=== PATIENT | female | born 1965 | race Caucasian/White ===

== ENCOUNTER 2016-10-24 03:47 | Observation (INO) ==
[2016-10-24 04:05] LABS: Basophils # 0.1 K/mcL (0.0-0.2); Basophils % 0.7 %; Eosinophils # 0.8 K/mcL (0.0-0.6); Hematocrit 46.6 % (35.3-44.9); Hemoglobin 15.6 g/dL (11.5-15.4); Immature Granulocytes % 0.3 % (0-4); Immature Platelets 1.8 % (1.1-6.1); Lymphocytes % 31.4 %; Mean Corpuscular HGB Conc 33.5 g/dL (31.6-35.5); Mean Corpuscular Hemoglobin 29.7 pg (28.0-33.3); Mean Corpuscular Volume 88.6 fL (83.0-100.0); Mean Platelet Volume 9.1 fL (9.4-12.4); Monocytes # 1.1 K/mcL (0.0-1.3); Neutrophils # 6.6 K/mcL (1.6-8.9); Platelet Count 381 K/mcL (140-400); Red Blood Count 5.26 M/mcL (3.82-4.97); Red Cell Distribution Width 12.9 % (11.5-14.5); Segmented Neutrophils % 52.6 %
--- NOTE | 2016-10-24 04:05 | Emergency Department Note ---
Disposition Clinical Impression: Unstable angina pectoris Chest pain Qualifiers: Chest pain type: unspecified Qualified Code(s): R07.9 - Chest pain, unspecified Disposition: Admitted As Inpatient Condition: Good Time of Disposition: 05:17 Chest Pain HPI - General Chief Complaint: ED Chest Pain Stated Complaint: chest pain Time Seen by Provider: 10/24/16 03:51 Source: patient Limitations: no limitations Vital Signs Reviewed: Yes Nursing Notes Reviewed: Yes - History of Present Illness HPI Narrative: 51-year-old female history of hypertension, CAD s/p 2 stents (Sep 2010), and hyperlipidemia presents the ED for chest pain. Patient reports unstable angina the past 3 days. Most recent episode 230 this morning describing chest pressure with radiation to the back. Denies any tearing sensation or radiation up the neck or down the arms. Symptoms lasted roughly 15 minutes after she took 324 mg aspirin and Xanax Some associated shortness of breath and nausea denies any diaphoresis or vomiting. She reports history of daily angina typically with exertion recently has been with at rest. Last heart catheterization was [address] Last stress test was a few years ago. Her job development specialist is Dr. Kenney. Reports compliance with her medications. Denies any fever, cough, abdominal pain. Denies any recent illness. Denies history of cancer, blood clots, recent long-distance travel, hospitalization or surgeries. Does not take any anticoagulants. Chest pain workup initiated. She is currently chest pain free. Her initial BP 175/112. Severity scale (1-10): 1 - Related Data Home Medications Medication Instructions Recorded Confirmed Aspirin 81 mg PO DAILY 02/15/15 09/26/16 Lisinopril [Zestril] 20 mg PO DAILY 02/15/15 09/26/16 ALPRAZolam [Xanax 0.5 MG Tablet] 0.5 mg PO PRN PRN 05/24/16 09/26/16 Amlodipine Besylate 10 mg PO DAILY 05/24/16 09/26/16 Metoprolol Tartrate [Lopressor] 50 mg PO BID 05/24/16 09/26/16 Nitroglycerin 0.4 mg SL Q5M PRN 05/24/16 09/26/16 Gabapentin [Neurontin] 300 mg PO TID 09/26/16 09/26/16 Allergies Allergy/AdvReac Type Severity Reaction Status Date / Time No Known Allergies Allergy Verified 02/15/15 15:47 All systems ED: reviewed and negative except as stated. Review of Systems: As Per HPI Constitutional: Denies: fever, chills Cardiovascular: Reports: chest pain. Denies: dyspnea on exertion Respiratory: Reports: dyspnea. Denies: cough Gastrointestinal: Reports: nausea. Denies: abdominal pain, vomiting Genitourinary: Denies: urgency, dysuria Musculoskeletal: Denies: back pain, neck pain Integumentary: Denies: rash, abrasion, lesions Neurological: Denies: headache Psychiatric: Reports: anxiety. Denies: depression Chest Pain PMH - Past Medical History Medical history: Reports: coronary artery disease, hyperlipidemia, hypertension , myocardial infarction, other Surgical history: Reports: angioplasty/stent Psychiatric history: Reports: anxiety, depression PROTOCOL OFFICER history: Reports: no PROTOCOL OFFICER history - Social History Smoking Status: Never smoker Alcohol use: Reports: none Drug use: Reports: none Physical Exam - General Limitations: no limitations General appearance: alert, in no apparent distress, obese - Head Head exam: atraumatic, normocephalic, normal inspection - Eye Eye exam: Present: normal appearance, EOMI - ENT ENT exam: normal exam, normal oropharynx, mucous membranes moist - Neck Neck exam: Present: normal inspection, full ROM, trachea midline - Chest Chest inspection: Present: normal inspection, symmetric chest wall rise. Absent : tenderness, rash - Respiratory Respiratory exam: Present: normal lung sounds bilaterally. Absent: respiratory distress, wheezes - Cardiovascular Cardiovascular exam: Present: regular rate, normal rhythm, normal heart sounds - Expanded Cardiovascular Exam Peripheral pulses: 2+: radial (R), radial (L) - Abdominal Exam Abdominal exam: Present: soft, Non-Tender, normal bowel sounds. Absent: tenderness, distention, guarding, rebound, rigidity - Extremities Exam Extremities exam: Present: normal inspection, full ROM, normal capillary refill. Absent: tenderness, pedal edema, calf tenderness - Back Exam Back exam: Present: normal inspection, full ROM. Absent: tenderness, CVA tenderness (R), CVA tenderness (L), vertebral tenderness - Neurological Exam Neurological exam: Present: alert, oriented X3, normal gait - Psychiatric Psychiatric exam: Present: normal affect, normal mood - Skin Skin exam: Present: warm, dry, intact, normal color Course - Reevaluation(s) Reevaluation #1: Patient presents with unstable angina. Typically has angina with exertion now with rest. Chest pressure begins 230 this morning resolved after aspirin. She has multiple risk factors. HEART score is 4. She is currently asymptomatic free. Recent stress test a few years ago. Her physical exam is otherwise unremarkable. Good peripheral pulses. Chest pain workup initiated. Her troponin 0. She would likely need admission for cardiac evaluation and management. Patients in agreement with this plan. Impression is chest pain and unstable angina. No further orders at this time. She is in no acute distress. Vital signs are stable. Vital Signs Temperature 97.6 F 10/24/16 03:48 Pulse Rate 84 10/24/16 03:48 Respiratory Rate 18 10/24/16 03:48 Blood Pressure 175/112 10/24/16 03:48 O2 Sat by Pulse Oximetry 98 10/24/16 03:48 Temperature 97.6 F 10/24/16 03:48 Pulse Rate 85 10/24/16 04:58 Respiratory Rate 92 10/24/16 04:58 Blood Pressure 143/86 10/24/16 04:58 O2 Sat by Pulse Oximetry 98 10/24/16 03:48 Oxygen Delivery Oxygen Delivery Room Air - Consultations Consultation #1: Spoke with on-call hospitalist manuel Khalil to admit for chest pain and unstable angina. No further orders at this time Time: 05:17 Vital Signs Temperature 97.6 F 10/24/16 03:48 Pulse Rate 84 10/24/16 03:48 Respiratory Rate 18 10/24/16 03:48 Blood Pressure 175/112 10/24/16 03:48 O2 Sat by Pulse Oximetry 98 10/24/16 03:48 Temperature 97.6 F 10/24/16 03:48 Pulse Rate 87 10/24/16 05:40 Respiratory Rate 17 10/24/16 05:41 Blood Pressure 125/90 10/24/16 05:41 O2 Sat by Pulse Oximetry 94 10/24/16 05:40 Oxygen Delivery Oxygen Delivery Room Air Chest Pain - Medical Records Medical records reviewed: Yes I reviewed the patient's medical records. - Lab Data Lab results reviewed: Yes I reviewed the patient's lab results. Result diagrams: 10/24/16 03:57 10/24/16 03:57 Lab Results 10/24/16 10/24/16 10/24/16 Range/Units 03:57 03:57 03:57 WBC 12.6 H (4.3-11.1) K/mcL RBC 5.26 H (3.82-4.97) M/mcL Hgb 15.6 H (11.5-15.4) g/dL Hct 46.6 H (35.3-44.9) % MCV 88.6 (83.0-100.0) fL MCH 29.7 (28.0-33.3) pg MCHC 33.5 (31.6-35.5) g/dL RDW 12.9 (11.5-14.5) % Plt Count 381 (140-400) K/mcL MPV 9.1 L (9.4-12.4) fL Immature Gran % 0.3 (0-4) % Seg Neutrophils % 52.6 % Lymphocytes % 31.4 % Monocytes % 9.0 % Eosinophils % 6.0 % Basophils % 0.7 % Neutrophils # 6.6 (1.6-8.9) K/mcL Lymphocytes # 4.0 (0.6-4.6) K/mcL Monocytes # 1.1 (0.0-1.3) K/mcL Eosinophils # 0.8 H (0.0-0.6) K/mcL Basophils # 0.1 (0.0-0.2) K/mcL Immature Plt Fraction 1.8 (1.1-6.1) % PT 9.9 (9.4-12.1) Seconds INR 0.9 APTT 31.8 (26.0-36.0) Seconds Sodium 142 (136-145) mEq/L Potassium 4.0 (3.5-4.5) mEq/L Chloride 107 (98-109) mEq/L Carbon Dioxide 24 (19-29) mEq/L BUN 15 (7-20) mg/dL Creatinine 0.77 (0.57-1.11) mg/dL Est GFR ( Amer) > 60 (> 60) Est GFR (Non-Af Amer) > 60 (> 60) BUN/Creatinine Ratio 19 (6-26) Glucose 113 H (70-99) mg/dL Calculated Osmolality 296 (280-300) Calcium 10.5 (8.6-10.8) mg/dL Troponin I (0-0.03) ng/mL 10/24/16 Range/Units 03:57 WBC (4.3-11.1) K/mcL RBC (3.82-4.97) M/mcL Hgb (11.5-15.4) g/dL Hct (35.3-44.9) % MCV (83.0-100.0) fL MCH (28.0-33.3) pg MCHC (31.6-35.5) g/dL RDW (11.5-14.5) % Plt Count (140-400) K/mcL MPV (9.4-12.4) fL Immature Gran % (0-4) % Seg Neutrophils % % Lymphocytes % % Monocytes % % Eosinophils % % Basophils % % Neutrophils # (1.6-8.9) K/mcL Lymphocytes # (0.6-4.6) K/mcL Monocytes # (0.0-1.3) K/mcL Eosinophils # (0.0-0.6) K/mcL Basophils # (0.0-0.2) K/mcL Immature Plt Fraction (1.1-6.1) % PT (9.4-12.1) Seconds INR APTT (26.0-36.0) Seconds Sodium (136-145) mEq/L Potassium (3.5-4.5) mEq/L Chloride (98-109) mEq/L Carbon Dioxide (19-29) mEq/L BUN (7-20) mg/dL Creatinine (0.57-1.11) mg/dL Est GFR ( Amer) (> 60) Est GFR (Non-Af Amer) (> 60) BUN/Creatinine Ratio (6-26) Glucose (70-99) mg/dL Calculated Osmolality (280-300) Calcium (8.6-10.8) mg/dL Troponin I 0.00 (0-0.03) ng/mL - Radiology Data Radiology results reviewed: Yes I reviewed the patient's radiology results. - EKG Data EKG attestation: Yes I reviewed and interpreted this EKG. EKG results narrative: EKG performed 353 normal sinus rhythm [address] elevations or depression, no T wave inversion, normal axis, good R wave progression, intervals are within normal limits. Compared to old EKG performed 05/24/2016 shows similar consistent findings. No acute ischemic changes. Heart Score - Score History: Moderately Suspicious EKG: Normal Age: 45-65 Risk Factors: Equal/Greater than 3 risk factor or history of atherosclerotic disease Troponin: Less than normal limit HEART Score Total: 4 Attestation Statement - Attestation Attestation: I personally interviewed and examined this patient and my medical decision- making was reviewed with the Resident Physician, Dr. Wing. I agree with the documented findings, disposition and treatment plan as described except to the extent set forth below. Patient is a 51-year-old white female with an extensive history of cardiovascular disease who presents to the emergency department today with chest pain that woke her from sleep at 2:30 this morning. Patient been having intermittent episodes of unstable and rest for the last 3 days. Patient states she took some aspirin about 15 minutes after the onset of the pain this morning and symptoms slowly resolved and she arrived to the emergency department pain- free. Patient with elevated blood pressure on arrival. I agree patient's physical exam findings as documented. Patient's EKG showed no acute changes and no ischemic changes. Patient had lab evaluation and chest x-ray here which was all within normal limits. Due to patient's extensive history we feel she would benefit from a cardiac evaluation so patient will be admitted for further evaluation and treatment. Case was discussed with the hospitalist and patient was accepted for further evaluation
[2016-10-24 04:13] LABS: INR 0.9; Prothrombin Time 9.9 Seconds (9.4-12.1)
[2016-10-24 04:16] LABS: Activated Partial Thrombo Time 31.8 Seconds (26.0-36.0)
[2016-10-24 04:19] LABS: BUN/Creatinine Ratio 19 (6-26); Blood Urea Nitrogen 15 mg/dL (7-20); Calcium 10.5 mg/dL (8.6-10.8); Carbon Dioxide 24 mEq/L (19-29); Chloride 107 mEq/L (98-109); Glucose 113 mg/dL (70-99); Osmolality,Calculated 296 (280-300); Sodium 142 mEq/L (136-145); eGFR For African Americans > 60 (> 60); eGFR For Non-African Americans > 60 (> 60)
[2016-10-24] MEDS ORDERED: Nitroglycerin 0.4 MG TAB.SUBL SL PRN (06:29)
--- NOTE | 2016-10-24 06:29 | Event Note ---
Date of Encounter: 10/24/16 Time of Encounter: 06:27 Hold over note: D/w ED physician. Admitted for chest pain, history of CAD. Currently chest pain free. BP slightly high, otherwise stable. - Will start home medicines - WIll recheck troponin at 10:00 - Will keep NPO in case she needs a stress test today - Full H&P to follow
[2016-10-24] MEDS ORDERED: Lisinopril 20 MG TABLET PO SCH ×2 (09:00→10:40)
[2016-10-24] MEDS ORDERED: amLODIPine 5 MG TABLET PO SCH (09:00)
--- NOTE | 2016-10-24 09:52 | Electrocardiograph Report ---
[address] [place], [place] [address] Test Date: 2016-10-24 Pat Name: Tamra Patel Department: 104 Room: 3B Gender: F Pump Tester: : 1965 Requested By: Abril Gordon Order Number: [id number] Reading MD: Juli Hagen Measurements Intervals [place] Rate: 98 P: 47 NH: 162 QRS: 31 QRSD: 103 T: 11 QT: 331 QTc: 386 Interpretive Statements SINUS RHYTHM ARTIFACT Electronically Signed On 10-24-2016 9:51:16 EDT by Juli Hagen
--- NOTE | 2016-10-24 10:51 | Internal Med History&Physical ---
<Mj Dowd - Last Filed: 10/24/16 11:41> Date of Encounter: 10/24/16 Time of Encounter: 09:30 Assessment and Plan (1) Chest pain, rule out acute myocardial infarction Current visit: Yes Status: Acute Patient presents with atypical chest pain symptoms, given that her chest pain was substernal, relieved with ASA, but not made worse with exertion. Her NIKKI score is a 4, based on her CAD risk factors, coronary stenosis, severe angina, and ASA use in the past 7 days, which correlates with a 20% risk of mortality within 2 weeks. Her Troponin is negative x1. EKG showed an ST-elevation in only a single lead in III and since it did not display any changes in any contiguous leads, an inferior OH is unlikely. Her last cardiac catheter was done in 2010, which showed an LVEF of 60%. A JOSH was done in 2013 that reveled an EF of 65-70 % with normal findings. Patient has been placed on her current home meds of lisinopril, aspirin, amlodipine, and metoprolol. Patient has refused to be on statin since she says it gives her leg cramps. We will continue to monitor her troponins and order an echocardiogram. If her troponins are normal tomorrow, we will order a stress test. Repeat EKG for tomorrow. (2) CAD (coronary artery disease) Current visit: Yes Status: Acute Patient has risk factors for CAD including a history of smoking, hyperlipidemia , obesity, and OH. Patient is currently on home meds of lisinopril, amlodipine, metoprolol, and aspirin. She refuses to be put on a statin. Qualifiers: Qualified Code(s): I25.10 - Atherosclerotic heart disease of telida coronary artery without angina pectoris (3) Hypertension Current visit: Yes Status: Acute Patient displays poor controlled blood pressure at home, stating that it is usually in the 140s systolic. BP range since admission has been from 125/90-156/ 91. Patient has been placed on her home meds of lisinopril, amlodipine, and metoprolol. Continue to monitor BP. Patient might want to consider renal ultrasound in outpatient follow-up. Qualifiers: Qualified Code(s): I10 - Essential (primary) hypertension (4) Hyperlipidemia Current visit: Yes Status: Acute Patient refuses to be put on statin. Will order lipid panel for tomorrow. Qualifiers: Qualified Code(s): E78.5 - Hyperlipidemia, unspecified Internal Medicine - H&P: HPI Chief complaint: Chest pain Admitted From: Emergency Dept History of present illness: Ms. Patel is a 51 year old female with a PMH of CAD, hyperlipidemia, HTN, OH, and s/p coronary stents that presents with chest pain. Patient says that the pain started last Monday morning when she was sleeping. She rates the pain as a 7/10, non-radiating, lasted 5-10 minutes, not worse with exertion, and not relieved by rest. Patient says that she took 4 doses of baby aspirin that resolved the pain within 5 minutes. This morning she once again experienced chest pain similar to the one she had on Monday. She admits to headaches, elevated heart rate, and nausea, but she denies any vomiting, diaphoresis, chest palpitations, syncope, or shortness of breath. She admits to swelling in her legs for 1 week along with a dry cough. She denies fever, chills, or recent illness. Patient also says that for the past year she has been experiencing 1-2 instances of chest pain per month. She says it is brought about by exertion, not relieved by rest, and only lasts a few seconds. She denies any shortness of breath, palpitations, increased HR, or syncope. She says that she is very mobile at home and that the most active thing she does is walk around at work for long periods of time with no shortness of breath. Past Med Surg Social Fam HX - Past Medical History Medical history: coronary artery disease, hyperlipidemia, hypertension, myocardial infarction, other Psychiatric history: anxiety, depression - Past Surgical History Surgical History: angioplasty/stent - Social History Smoking Status: Former smoker Smokeless Tobacco Status: No Alcohol use: none Drug use: none - Family History Father Living Status: Cause of : OH Hx Family Cardiac Disorders: Yes (CAD) Hx Family Endocrine Disorder: Yes (Diabetes) Mother Living Status: Hx Family Endocrine Disorder: Yes (Diabetes, Librado's disorder) Internal Medicine - H&P: Meds Aspirin 81 mg PO DAILY 02/15/15 [History] Lisinopril [Zestril] 20 mg PO DAILY 02/15/15 [History] ALPRAZolam [Xanax 0.5 MG Tablet] 0.5 mg PO BID PRN 05/24/16 [History] Amlodipine Besylate 10 mg PO DAILY 05/24/16 [History] Metoprolol Tartrate [Lopressor] 50 mg PO BID 05/24/16 [History] Nitroglycerin 0.4 mg SL Q5M PRN 05/24/16 [History] Gabapentin [Neurontin] 300 mg PO HS PRN 09/26/16 [History] 3 Allergy/AdvReac Type Severity Reaction Status Date / Time No Known Allergies Allergy Verified 02/15/15 15:47 All Systems PM: A 10-system review of systems was performed and is negative for pertinent findings except as documented above in the HPI. - Constitutional Constitutional: no chills, no excessive sweating, no fever(s) - EENT Eyes: no blurry vision, no change in vision, no loss of vision - Cardiovascular Cardiovascular ROS IM: chest pain, edema, no dyspnea on exertion, no irregular heart rhythm, no lightheadedness, no orthopnea, no palpitations, no syncope - Respiratory Respiratory: cough, no dyspnea, no pain on inspiration, no pain with cough - Gastrointestinal Gastrointestinal: nausea, no abdominal pain, no vomiting - Musculoskeletal Musculoskeletal ROS IM: myalgias - Neurological Neurological ROS: headache(s), no dizziness, no loss of vision, no numbness - Constitutional Vitals: Temp Pulse Resp BP Pulse Ox 97.5 F L 91 18 156/91 90 10/24/16 05:54 10/24/16 05:54 10/24/16 05:54 10/24/16 05:54 10/24/16 05:54 General appearance: Present: no acute distress, obese - Head Head exam: Present: atraumatic, normal inspection, normocephalic - Eye Eye exam: Present: EOMI, normal appearance, PERRL - ENT ENT exam: Present: mucous membranes moist, normal oropharynx - Neck Neck exam general surgery: Absent: lymphadenopathy - Respiratory Respiratory exam: Present: CTAB. Absent: chest wall tenderness, rales, rhonchi , wheezes, tachypnea - Cardiovascular Cardiovascular exam: Present: RRR, +S1, +S2. Absent: irregular rhythm, JVD - GI/Abdominal GI/Abdominal exam: Present: normal bowel sounds, soft, no peritoneal signs. Absent: guarding, tenderness - Extremities Exam Extremities exam: Present: normal inspection, radial pulses palpable and symmetrical. Absent: pedal edema - Neurological Exam Neurological exam: Present: CN II-XII intact, normal gait, reflexes normal, no focal deficits, strengths equal and symetr throughout Internal Med - H&P Results - Labs CBC & Chem 7: 10/24/16 03:57 10/24/16 03:57 Labs: Laboratory Tests 10/24/16 10/24/16 03:57 03:57 INR 0.9 Troponin I 0.00 - EKG Data Prior EKG available for review: yes Interpretation IM: other (EKG shows a sinus rhythm with new ST-elevation in lead III. ) EKG comments: 10/24/16 11:55 Since there was an ST-elevation in a single lead in III and no ST changes in any other contiguous leads, an inferior OH is unlikely. <Marcella Sierra - Last Filed: 10/24/16 12:31> Date of Encounter: 10/24/16 Internal Medicine - H&P: HPI History of present illness: Ms. Patel is a 51 year old female All Systems PM: A 10-system review of systems was performed and is negative for pertinent findings except as documented above in the HPI. - Constitutional Vitals: Temp Pulse Resp BP Pulse Ox 96.8 F L 90 16 149/87 94 10/24/16 11:00 10/24/16 11:00 10/24/16 11:00 10/24/16 11:00 10/24/16 11:00 Internal Med - H&P Results - Labs CBC & Chem 7: 10/24/16 03:57 10/24/16 03:57 Labs: Cardiac Enzymes 10/24/16 Range/Units 09:40 Troponin I 0.01 (0-0.03) ng/mL - Attending Attestation Patient independently seen and examined. Admitted for chest pain and given cardiac history, will admit to rule out ACS Serial TNI, ASA, BB, patient refusing statin therapy, Tele monitoring, nitro SL prn chest pain, NPO after midnight for nuclear stress test in am Case discussed with resident physician, I agree with his documented findings, assessment, and plan.
[2016-10-24] MEDS: ALPRAZolam 0.5 MG TABLET PO PRN ×2 (11:13→20:20)
[2016-10-24] MEDS: Gabapentin 300 MG CAPSULE PO SCH (11:13)
[2016-10-24] MEDS: Aspirin 81 MG TAB.CHEW PO SCH (11:14)
[2016-10-24] MEDS: *HR* Heparin 5,000 UNIT/ML VIAL SQ SCH (18:04)
[2016-10-25] MEDS: *HR* Heparin 5,000 UNIT/ML VIAL SQ SCH ×2 (05:31→19:14)
[2016-10-25] MEDS ORDERED: Regadenoson 0.4 MG/5 ML SYRINGE IVP ONE (05:45)
[2016-10-25 09:31] LABS: Chol/HDL Ratio 5.9 (0-4.9); Cholesterol 212 mg/dL (< 200); HDL Cholesterol 36 mg/dL (40-59); Triglycerides 458 mg/dL (< 150)
[2016-10-25] MEDS: ALPRAZolam 0.5 MG TABLET PO PRN ×2 (09:32→22:32)
[2016-10-25] MEDS: Aspirin 81 MG TAB.CHEW PO SCH (09:32)
[2016-10-25] MEDS: amLODIPine 5 MG TABLET PO SCH (09:32)
[2016-10-25] MEDS: Gabapentin 300 MG CAPSULE PO SCH ×2 (09:33→19:13)
[2016-10-25 09:52] LABS: LDL Cholesterol,Direct 108 mg/dL (< 100)
--- NOTE | 2016-10-25 10:02 | Nuclear Medicine Stress Report ---
Regadenoson Nuclear Stress Name: Tamra Patel Date of Study: 10/25/2016 Date: 1965 Ht: 66.0 in Medical Record#: [id number] Age: 51 Wt: 220.0 lb Gender: Female Order #: [id number] Location: [facility] Room: [facility] Supervising Provider: Louis Vivas CNP Reading Physician: Ashish Kenney DO, FACC, FASND Ordering Physician: Leda Saenz CNP Primary Care Physician: Ronda Funes CNP sStress Technologist: Elena Smith RENEWABLE ENERGY ENGINEER, CCT Cable Television Installer: Antwan Gomez Indications: Chest Pain Impression: Pharmacologic stress ECG is negative for ischemia at level of heart rate achieved. Gated EF > 70%. Perfusion imaging was positive for ischemia. History: Hypertension Hypercholesteremia Prior PCI Stress Test Summary: Stress Test Type: Pharmacologic Regadenoson 0.4mg/5ml given IV Baseline Information: Initial Heart Rate: 92 Blood Pressure: 160/84 Stress Information: Test Terminated Due to (primary): As per protocol Maximum Blood Pressure: 142/80 Maximum Heart Rate: 100 Percent Maximum Heart Rate Achieved: 60 Double Product: [id number] METS Reached: 1 Symptoms: No chest symptoms Nuclear Summary: SPECT myocardial perfusion imaging using Tc99m Sestamibi given intravenously was performed at rest and following cardiac stress testing. The resting images were obtained following initial dose of 11.5 mCi. Following stress an additional dose of 33.2 mCi was given at peak exercise or 30 seconds post regadenoson infusion. Medication Given: Time Medication Dose Units Route Findings: Stress Note * Resting ECG demonstrated normal sinus rhythm. * No baseline arrhythmias were noted. * Pharmacologic stress ECG is negative for ischemia at level of heart rate achieved. * No arrhythmias were noted during stress. * Patient had no chest pain during stress. Hemodynamic responses * Normal hemodynamic responses to pharmacologic stress. Study Quality * Study quality is average. Gated EF > 70% * Gated EF > 70%. Left Ventricle * The left ventricle is not dilated. LVEDV = 42 mL. NORMALS * Normal wall motion. * Normal Segmental Perfusion in rest. * Normal segmental perfusion in stress. TID * No evidence of transient ischemic dilatation. TID ratio = 1.06. Lung Uptake * There is no evidence of increase lung uptake. Updated by Ashish Kenney DO, JORGE, ABHISHEK, RENETTA on 10/25/2016 9:55:51 AM electronically signed on 10/25/2016 9:56:47 AM with status of Final
--- NOTE | 2016-10-25 16:58 | Discharge Summary ---
Date of Encounter: 10/25/16 Time of Encounter: 16:40 - Discharge Diagnosis (1) Chest pain Priority: Primary Status: Acute Comments: Patient denies chest pain since arrival. Echocardiogram on arrival was normal sinus rhythm with a rate of 98, when necessary for 162, QRS 103, QTC 386. Chest x-rays negative for any acute process. Stress test was negative for ischemia or infarct the gated EF of greater than 70%, echo with LVEF of 65% with mild LV DD and no significant valvular dysfunction. Chest pain happened Monday at oh 4:30 in the morning and again on Monday to 2:30 in the morning, woke her up both times. Patient feels that this could potentially be anxiety related to work. 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 The pain is not reproducible with deep palpation or deep inspiration or movement. Patient also states that she has chronic reflux symptoms and has not been consistent with her medications. I am going to give her a prescription for omeprazole. She will need to follow up with primary care and she also has a pending appointment with cardiology. Qualifiers: Chest pain type: unspecified Qualified Code(s): R07.9 - Chest pain, unspecified (2) Obesity (BMI 30-39.9) Priority: Secondary Status: Chronic Comments: Chronic. Lifestyle changes. (3) GERD (gastroesophageal reflux disease) Priority: Secondary Status: Chronic Comments: Patient reports a lengthy history of reflux and heartburn symptoms. She states that she is not taking any medications. States that he would like to try omeprazole. Qualifiers: Esophagitis presence: esophagitis presence not specified Qualified Code(s) : K21.9 - Gastro-esophageal reflux disease without esophagitis (4) CAD (coronary artery disease) Priority: Secondary Status: Chronic Comments: Patient reports prior CO. States that the pain that she had this time was not at all like CO in the past. Patient refuses to take a statin due to muscle pain. States that she does take fish oil when she remembers, she is not consistent. We discussed restarting it on discharge, she does not want a prescription, states that she will buy them at the store. Continue aspirin and beta daryl. Patient has appointment to follow up with cardiology. Qualifiers: Coronary Disease-Associated Artery/Lesion type: [place] artery [place] vs. transplanted heart: [place] heart Associated angina: angina presence unspecified Qualified Code(s): I25.10 - Atherosclerotic heart disease of [place] coronary artery without angina pectoris (5) Hypertension Priority: Secondary Status: Chronic Comments: Continue home medications. Well-controlled in inpatient setting. Qualifiers: Hypertension type: essential hypertension Qualified Code(s): I10 - Essential (primary) hypertension (6) Hyperlipidemia Priority: Secondary Status: Acute Qualifiers: Hyperlipidemia type: pure hypercholesterolemia Qualified Code(s): E78.00 - Pure hypercholesterolemia, unspecified; E78.0 - Pure hypercholesterolemia (7) Anxiety Priority: Secondary Status: Chronic Comments: Patient with chronic anxiety. She states that she is to be on an antidepressant by her primary care physician has taken her off it. She now only has Xanax when necessary. She states that she feels that the chest pain she has had could potentially be anxiety. Patient will need to follow-up with primary care to start another antidepressant. - Discharge Medications Prescriptions: [place]-3 Fatty Acids/Fish Oil [Fish Oil 1,000 mg Softgel] 1 each PO DAILY #30 capsule Omeprazole 20 mg PO DAILY #30 tablet. Home Medications: Aspirin 81 mg PO DAILY 02/15/15 [History] Lisinopril [Zestril] 20 mg PO DAILY 02/15/15 [History] ALPRAZolam [Xanax 0.5 MG Tablet] 0.5 mg PO BID PRN 05/24/16 [History] Amlodipine Besylate 10 mg PO DAILY 05/24/16 [History] Metoprolol Tartrate [Lopressor] 50 mg PO BID 05/24/16 [History] Nitroglycerin 0.4 mg SL Q5M PRN 05/24/16 [History] Gabapentin [Neurontin] 300 mg PO HS PRN 09/26/16 [History] Trout-3 Fatty Acids/Fish Oil [Fish Oil 1,000 mg Softgel] 1 each PO DAILY #30 capsule 10/25/16 [Rx] Omeprazole 20 mg PO DAILY #30 tablet. 10/25/16 [Rx] Allergies/Adverse Reactions: 3 Allergy/AdvReac Type Severity Reaction Status Date / Time No Known Allergies Allergy Verified 02/15/15 15:47 Procedures/tests Complete & Pending: Procedures Performed prior 72 hours Category Date Time Status NM jose carlos perf SPECT multi [NM] Routine Exams 10/25/16 07:00 Taken EV echocardiogram Routine Y 10/24/16 11:39 Completed SP pharm nuclear stress Routine Y 10/25/16 07:00 Completed Date of admission: 10/24/16 05:33 Primary care physician: Ronda Funes CNP Discharging clinician: Jodee Osorio Anticipated date of discharge: 10/25/16 - Patient Status Disposition: Home, Self-Care Functional capacity at discharge: independent ambulation Overall status at discharge: patient is back to baseline - Discharge Instructions Instructions: Omeprazole (By mouth), [id number] Ethyl Esters (By mouth), Chest Pain (GEN) Follow Up With: Ronda Funes CNP [Primary Care Provider] - 11/07/16 3:15 pm Additional Instructions: Follow-up with your primary care physician in the next 7-10 days for follow-up appointment. Return to work on . Continue your normal home medications and start your new medications and take as directed. Return to the emergency department immediately if your symptoms return or worsen , or for any other problems or concerns. Resume normal activities as tolerated. - Diet and Activity Activity: increase activity as tolerated Diet: low fat, low cholesterol Hospital course: Ms. Patel is a 51 year old female with past medical history of CO, coronary artery disease, hyperlipidemia, hypertension, obesity, GERD, anxiety. She presents to the emergency department with complaint of chest pressure, she describes it as somewhat squeezing from front to back. This happened twice once at 4:30 in the morning was at 2:30 in the morning, both times this awakened her. She rates the pain 7/10, nonradiating, lasted 5-10 minutes with no aggravating or relieving factors. She says that she has been having the chest pain intermittently for the last year and is normally brought about by exertion. Normally only last for a few seconds. She states that she is having a lot of stress at work and that this could be related to stress since that happened on work days that were by the weekend. She denies chest pain currently. She also states that this pain is nothing like the pain she had with her heart attack. She is aware of her elevated lipid panel and refuses to take a statin due to leg pain. She says that she has taken fish oil in the past but is not consistent with it. She also reports frequent GERD symptoms, burning in her chest and feeling acid in her chest. She will be started on omeprazole. Patient states that she quit smoking 3 years ago. Chest x-ray was negative for any acute disease, troponins were negative. Echocardiogram showed LVEF of 65% mild LVEDD and no significant valvular dysfunction. Stress test was positive for ischemia per report, she has a gated EF of greater than 70%. Pt denies chest pain since prior to arrival. Pain is not reproducible with palpation, movement, or deep inspiration. Pt states that she has a stressful job, she works in the cafeteria at a local school. She states that she has anxiety and is only on prn Xanax; PCP took her off of her antidepressant. She states that the pain awakened her from sleep on work mornings that were by a weekend. Labs are WNL and vitals are stable. Pt is ready for discharge. Pt is going to stay overnight for clarification of stress test results by Dr. Turcios, report appears to be negative, but states that it is positive. I did speak with Dr. cummings about results, she was unable to clarify. Cardiology consult is in, pending consult, pt will go home in the morning. - Time Spent with Patient Total time spent providing and/or coordinating discharge services: Less than 30 minutes - Constitutional Vitals: Temp Pulse Resp BP Pulse Ox 98.0 F 85 18 124/78 93 10/25/16 15:37 10/25/16 15:37 10/25/16 15:37 10/25/16 15:37 10/25/16 15:37 General appearance: Present: cooperative, A&O X 3, pleasant, no acute distress, obese, answers questions appropriately - Head Head exam: Present: normal inspection - Eye Eye exam: Present: normal appearance, conjuntiva pink - ENT ENT exam: Present: mucous membranes moist, normal exam, normal external ear exam - Neck Neck exam general surgery: Present: normal inspection. Absent: lymphadenopathy , tenderness - Respiratory Respiratory exam: Present: CTAB. Absent: chest wall tenderness, decreased breath sounds, rales, respiratory distress, rhonchi, stridor, wheezes - Cardiovascular Cardiovascular exam: Present: RRR, +S1, +S2. Absent: clicks, diastolic murmur, gallop, systolic murmur - GI/Abdominal GI/Abdominal exam: Present: distended, normal bowel sounds, soft. Absent: hepatomegaly, tenderness - Extremities Exam Extremities exam: Present: normal inspection, warm, radial pulses palpable and symmetrical. Absent: pedal edema, tenderness - Neurological Exam Neurological exam: Present: alert, oriented X3, no focal deficits, strengths equal and symetr throughout. Absent: facial droop, speech deficit
[2016-10-25] MEDS: Lisinopril 20 MG TABLET PO SCH (22:32)
[2016-10-26] MEDS: *HR* Heparin 5,000 UNIT/ML VIAL SQ SCH (05:52)
[2016-10-26 07:26] VITALS: BP 142/82
[2016-10-26] MEDS: Aspirin 81 MG TAB.CHEW PO SCH (08:46)
[2016-10-26] MEDS: amLODIPine 5 MG TABLET PO SCH (08:46)
[2016-10-26] MEDS: Lisinopril 20 MG TABLET PO SCH (08:46)
[2016-10-26] MEDS: Gabapentin 300 MG CAPSULE PO SCH (08:46)
--- NOTE | 2016-10-26 09:50 | Event Note ---
Date of Encounter: 10/26/16 Time of Encounter: 09:46 - Cardiology Event Note Stress test with typo in impressions. Discussed and reviewed with , no perfusion ischemia or infarct. Report has been corrected. Discussed with patient and apologized for error. Patient has been scheduled with for follow up.
--- NOTE | 2016-10-26 10:44 | Internal Med Progress Note ---
Date of Encounter: 10/26/16 Time of Encounter: 10:35 - Assessment and plan (1) Chest pain Current Visit: Yes Status: Acute Assessment and plan: Denies chest pain. Stress test negative, clarified by cardiology. Qualifiers: Chest pain type: unspecified Qualified Code(s): R07.9 - Chest pain, unspecified (2) Obesity (BMI 30-39.9) Current Visit: Yes Status: Chronic Assessment and plan: Chronic. Lifestyle changes. (3) GERD (gastroesophageal reflux disease) Current Visit: Yes Status: Chronic Assessment and plan: Chronic. Continue home medications. Qualifiers: Esophagitis presence: esophagitis presence not specified Qualified Code(s) : K21.9 - Gastro-esophageal reflux disease without esophagitis (4) CAD (coronary artery disease) Current Visit: Yes Status: Chronic Assessment and plan: Pt refuses statin due to leg pain, she has been given an RX for fish oil for home. Continue ASA and BB, follow up with cardiology as scheduled. Qualifiers: Coronary Disease-Associated Artery/Lesion type: [place] artery [place] vs. transplanted heart: [place] heart Associated angina: angina presence unspecified Qualified Code(s): I25.10 - Atherosclerotic heart disease of [place] coronary artery without angina pectoris (5) Hypertension Current Visit: Yes Status: Chronic Assessment and plan: Well controlled in hospital, continue home medications. Qualifiers: Hypertension type: essential hypertension Qualified Code(s): I10 - Essential (primary) hypertension (6) Hyperlipidemia Current Visit: Yes Status: Chronic Assessment and plan: Restart Fish Oil. Rx given. Pt refuses statin. Qualifiers: Hyperlipidemia type: pure hypercholesterolemia Qualified Code(s): E78.00 - Pure hypercholesterolemia, unspecified; E78.0 - Pure hypercholesterolemia (7) Anxiety Current Visit: Yes Status: Chronic Assessment and plan: Continue Xanax, discuss other treatment options with PCP on next visit. - Time Spent With Patient less than 15 minutes - Subjective Interval history: Pt seen and assessed at 1035. Pt sitting in chair, states that she has been ready to go home since 0500. Cardiology clarified stress report and pt is ready to go home. Denies chest pain since prior to arrival. Physical exam unremarkable. - Constitutional Vitals: Temp Pulse Resp BP Pulse Ox 97.2 F L 89 16 142/82 94 10/26/16 07:23 10/26/16 07:23 10/26/16 07:23 10/26/16 07:23 10/26/16 07:23 General appearance: Present: cooperative, A&O X 3, pleasant, no acute distress, obese, answers questions appropriately - Head Head exam: Present: atraumatic, normal inspection, normocephalic - Eye Eye exam: Present: EOMI, normal appearance, conjuntiva pink Pupils: Present: PERRL - Neck Neck exam general surgery: Present: normal inspection, supple, trachea midline. Absent: lymphadenopathy, tenderness - Respiratory Respiratory exam: Present: CTAB. Absent: accessory muscle use, rales, respiratory distress, rhonchi, wheezes - Cardiovascular Cardiovascular exam: Present: RRR, +S1, +S2. Absent: diastolic murmur, gallop, rubs, systolic murmur - GI/Abdominal GI/Abdominal exam: Present: normal bowel sounds, soft, no peritoneal signs. Absent: distended, hepatomegaly, tenderness - Extremities Exam Extremities exam: Present: warm, radial pulses palpable and symmetrical. Absent : calf tenderness, cyanotic, pedal edema - Neurological Exam Neurological exam: Present: alert, oriented X3, no focal deficits. Absent: pronater drift, facial droop, speech deficit - Skin Skin exam: Present: dry, intact Internal Medicine: Result - Labs CBC & Chem 7: 10/24/16 03:57 10/24/16 03:57 - ABG Interpretation ABG results: PT/INR, D-dimer PT 9.9 Seconds (9.4-12.1) 10/24/16 03:57 Consult Discharge Plan - Plan Instructions: Omeprazole (By mouth), Rhavg-[id number] Ethyl Esters (By mouth), Chest Pain (GEN) Additional Instructions: Follow-up with your primary care physician in the next 7-10 days for follow-up appointment. Return to work on . Continue your normal home medications and start your new medications and take as directed. Return to the emergency department immediately if your symptoms return or worsen , or for any other problems or concerns. Resume normal activities as tolerated. Referrals: Ronda Funes CNP [Primary Care Provider] - 11/07/16 3:15 pm Prescriptions: [place]-3 Fatty Acids/Fish Oil [Fish Oil 1,000 mg Softgel] 1 each PO DAILY #30 capsule Omeprazole 20 mg PO DAILY #30 tablet.
== END 2016-10-26 10:46 | disposition home or self-care (01) ==
LOC: EMEROO 03:47 → 3BNU 03:47
PROVIDERS: ADMIT Internal Medicine; ATTEND Nurse Practitioner Family

== ENCOUNTER 2020-06-13 15:31 | Observation (INO) ==
[2020-06-13] MEDS ORDERED: Aspirin 81 MG TAB.CHEW PO ONE (15:58)
[2020-06-13] MEDS ORDERED: Isovue-370 500 ML BOTTLE IVP ONE (15:59)
[2020-06-13 16:28] LABS: Basophils # 0.1 K/mcL (0.0-0.2); Basophils % 0.7 %; Eosinophils # 0.3 K/mcL (0.0-0.6); Eosinophils % 2.5 %; Hematocrit 43.7 % (35.3-44.9); Hemoglobin 14.7 g/dL (11.5-15.4); Immature Granulocytes % 0.4 % (0-4); Lymphocytes # 2.4 K/mcL (0.6-4.6); Lymphocytes % 23.2 %; Mean Corpuscular HGB Conc 33.6 g/dL (31.6-35.5); Mean Corpuscular Hemoglobin 29.3 pg (28.0-33.3); Mean Corpuscular Volume 87.1 fL (83.0-100.0); Mean Platelet Volume 9.3 fL (9.4-12.4); Monocytes # 0.6 K/mcL (0.0-1.3); Monocytes % 5.3 %; Neutrophils # 7.1 K/mcL (1.6-8.9); Platelet Count 310 K/mcL (140-400); Red Blood Count 5.02 M/mcL (3.82-4.97); Red Cell Distribution Width 12.5 % (11.5-14.5); Segmented Neutrophils % 67.9 %; White Blood Count 10.4 K/mcL (4.3-11.1)
[2020-06-13 16:37] LABS: Albumin 4.5 g/dL (3.5-5.7); Albumin/Globulin Ratio 1.4 (1.1-2.2); BUN/Creatinine Ratio 18 (6-26); Bilirubin,Indirect 0.3 mg/dL (0.0-1.0); Bilirubin,Total 0.3 mg/dL (0.3-1.0); Blood Urea Nitrogen 10 mg/dL (6-20); Calcium 9.7 mg/dL (8.6-10.3); Carbon Dioxide 26 mEq/L (23-29); Chloride 98 mEq/L (98-107); Globulin 3.2 g/dL (2.4-3.5); Glucose 205 mg/dL (70-105); Osmolality,Calculated 281 (280-300); Sodium 133 mEq/L (136-145); Total Protein 7.7 g/dL (6.4-8.9); eGFR For African Americans > 60 (> 60); eGFR For Non-African Americans > 60 (> 60)
[2020-06-13 16:38] LABS: Troponin I < 0.03 ng/mL (< 0.04)
[2020-06-13 16:39] LABS: Activated Partial Thrombo Time 28.9 Seconds (26.0-36.0)
[2020-06-13 17:15] LABS: Bilirubin,Urine Negative (Negative); Blood,Urine Negative (Negative); Clarity,Urine Clear (Clear); Color,Urine Colorless (Yellow); Glucose,Urine (UA) Normal (Normal); Ketones,Urine Negative (Negative); Leukocyte Esterase,Urine Negative (Negative); Nitrite,Urine Negative (Negative); PH,Urine 6.5 pH Units (5.0-8.0); Protein,Urine Trace mg/dL (Neg-Trace); Urobilinogen,Urine Normal (Normal)
[2020-06-13] MEDS ORDERED: cefTRIAXone 1,000 MG in Water for inj. (sterile) 10 ML IVP ONE (18:59)
[2020-06-13] MEDS ORDERED: Azithromycin 500 MG in 0.9 % Sodium Chloride 250 ML IVPB ONE ×2 (18:59→20:00)
[2020-06-13] MEDS ORDERED: Morphine Sulfate 2 MG/ML SYRINGE IVP STA (19:26)
[2020-06-13] MEDS ORDERED: Azithromycin 500 MG in 0.9 % Sodium Chloride 250 ML IVPB STA (19:44)
[2020-06-13] MEDS ORDERED: Melatonin 3 MG TABLET PO PRN (21:11)
[2020-06-13] MEDS ORDERED: Naloxone 0.4 MG/ML INJ IVP PRN (21:11)
[2020-06-13] MEDS ORDERED: Ondansetron 4 MG/2 ML VIAL IVP PRN (21:11)
[2020-06-13] MEDS ORDERED: D5% in Water 1,000 ML IVC PRN (21:24)
[2020-06-13] MEDS ORDERED: *HR* Dextrose 50 % in Water (Vial) 50 ML VIAL IVP PRN (21:24)
[2020-06-13] MEDS ORDERED: Dextrose Gel 15 GM/37.5 ML TUBE PO PRN ×2 (21:24)
[2020-06-13] MEDS ORDERED: Nitroglycerin 0.4 MG TAB.SUBL SL PRN (22:56)
[2020-06-13] MEDS: Acetaminophen 325 MG TABLET PO PRN (23:30)
[2020-06-14] MEDS: Insulin LISPRO 300 UNITS/3 ML VIAL SUBQ SCH ×2 (00:08→05:45)
[2020-06-14 02:12] LABS: Basophils # 0.1 K/mcL (0.0-0.2); Basophils % 0.4 %; Eosinophils # 0.3 K/mcL (0.0-0.6); Eosinophils % 2.3 %; Hematocrit 43.3 % (35.3-44.9); Immature Granulocytes % 0.3 % (0-4); Lymphocytes # 2.5 K/mcL (0.6-4.6); Mean Corpuscular HGB Conc 32.3 g/dL (31.6-35.5); Mean Corpuscular Hemoglobin 29.2 pg (28.0-33.3); Mean Corpuscular Volume 90.4 fL (83.0-100.0); Mean Platelet Volume 9.3 fL (9.4-12.4); Monocytes # 0.8 K/mcL (0.0-1.3); Monocytes % 6.8 %; Neutrophils # 7.9 K/mcL (1.6-8.9); Platelet Count 297 K/mcL (140-400); Red Blood Count 4.79 M/mcL (3.82-4.97); Red Cell Distribution Width 12.5 % (11.5-14.5); Segmented Neutrophils % 68.2 %; White Blood Count 11.5 K/mcL (4.3-11.1)
[2020-06-14 02:35] LABS: Alanine Aminotransferase 37 Units/L (7-52); Albumin 4.1 g/dL (3.5-5.7); Albumin/Globulin Ratio 1.3 (1.1-2.2); Alkaline Phosphatase 72 Units/L (34-104); Aspartate Amino Transferase 26 Units/L (13-39); BUN/Creatinine Ratio 20 (6-26); Bilirubin,Total 0.2 mg/dL (0.3-1.0); Blood Urea Nitrogen 12 mg/dL (6-20); Calcium 9.2 mg/dL (8.6-10.3); Carbon Dioxide 26 mEq/L (23-29); Chloride 100 mEq/L (98-107); Globulin 3.1 g/dL (2.4-3.5); Glucose 278 mg/dL (70-105); Magnesium 1.9 mg/dL (1.6-2.6); Osmolality,Calculated 288 (280-300); Phosphorous 3.4 mg/dL (2.7-4.5); Potassium 3.9 mEq/L (3.5-5.1); Sodium 134 mEq/L (136-145); Total Protein 7.2 g/dL (6.4-8.9); Troponin I < 0.03 ng/mL (< 0.04); eGFR For African Americans > 60 (> 60); eGFR For Non-African Americans > 60 (> 60)
[2020-06-14] MEDS ORDERED: *HR* Heparin 5,000 UNIT/ML VIAL SQ SCH (06:00)
[2020-06-14 06:59] VITALS: BP 150/80
[2020-06-14] MEDS ORDERED: Ipratropium/Albuterol Neb 3 ML IH PRN (07:29)
[2020-06-14] MEDS ORDERED: lisinopriL 20 MG TABLET PO SCH (09:00)
[2020-06-14] MEDS: Acetaminophen 325 MG TABLET PO PRN (10:34)
[2020-06-14] MEDS ORDERED: cefTRIAXone 1,000 MG in Water for inj. (sterile) 10 ML IVP SCH (19:00)
[2020-06-14] MEDS ORDERED: Azithromycin 500 MG in D5% in Water 250 ML IVPB SCH (20:00)
== END 2020-06-14 11:23 | disposition home or self-care (01) ==
LOC: EMEROOARM 15:31 → 3ANU 15:31 → SUATTDRO 20:33 → 3ANU 20:48
PROVIDERS: ADMIT Internal Medicine; ATTEND Internal Medicine